=== PATIENT | female | born 1960 | race Caucasian/White ===

== ENCOUNTER 2016-12-29 17:35 | Emergency (ER) | payer SELFPAY ==
[~2016-12-29] VITALS: Ht 154.9 cm; Wt 83.4 kg
[2016-12-29 18:12] LABS: BLOOD UREA NITROGEN 22 mg/dL (7-18)
[2016-12-29] MEDS ORDERED: ACET325C PO (18:23)
[2016-12-29] MEDS ORDERED: ASPI1TAB2 PO (18:23)
[2016-12-29] MEDS ORDERED: ONDANSETRON 2MG/ML, 2ML IVPush ONE (18:30)
[2016-12-29] MEDS ORDERED: SODIUM CHLORIDE FLUSH 10ML SYR IVF ONE (18:30)
[2016-12-29] MEDS ORDERED: SODIUM CHLORIDE 0.9% 1,000ML IVBOLUS ONE (18:30)
[2016-12-29] MEDS ORDERED: MORPHINE SULFATE 4 MG/ML, 1ML IVPush PRN (18:30)
[2016-12-29] MEDS ORDERED: ONDANSETRON 2MG/ML, 2ML ONE (18:33)
[2016-12-29] MEDS ORDERED: MORPHINE SULFATE 4 MG/ML, 1ML ONE (18:33)
[2016-12-29 18:45] LABS: PATH.CAST-FLAG NOT PRESENT; SPERM-FLAG NOT PRESENT; SRC-FLAG NOT PRESENT; XTAL-FLAG NOT PRESENT; YLC-FLAG NOT PRESENT
[2016-12-29 21:04] VITALS: BP 171/72
== END 2016-12-29 22:34 | disposition home or self-care (01) ==
LOC: EDBD 17:35 → ED 20:45
DX: R10.31 Right lower quadrant pain (principal); R10.33 Periumbilical pain; R94.4 Abnormal results of kidney function studies
CPT/HCPCS: 36415; 74176; 76830; 80048; 80076; 81001; 82040; 83690; 85025; 96361; 96374; 96375; 99285; J2405; J7030

== ENCOUNTER → 2020-08-20 | Outpatient (CLI) | payer OTHER ==
[~2020-08-20] MED LIST: ACET325C3 PO; ASPI-691 PO
[2020-08-20 12:28] LABS: BASOPHILS % (AUTO) 1 % (0-1); EOSINOPHILS % (AUTO) 1 % (1-7); LYMPHOCYTES % (AUTO) 17 % (22-44); MEAN CORPUSCULAR HEMOGLOBIN 30.4 pg (27.0-34.8); MEAN CORPUSCULAR HGB CONC 33.9 g/dL (32.4-35.8); MEAN PLATELET VOLUME 7.3 fL (7.4-10.4); MONOCYTES % (AUTO) 6 % (2-9); NEUTROPHILS % (AUTO) 76 % (42-75); PLATELET COUNT 477 x10^3/uL (130-400); RED BLOOD COUNT 3.61 x10^6/uL (3.82-5.3); RED CELL DISTRIBUTION WIDTH 16.7 % (9.6-15.2)
[2020-08-20 12:40] LABS: ALBUMIN 2.6 g/dL (3.4-5.0)
[2020-08-20 12:41] LABS: ALANINE AMINOTRANSFERASE 20 U/L (12-78); CREATININE 1.61 mg/dL (0.55-1.02)
[2020-08-20 12:48] LABS: MD NO
[2020-08-20 13:40] LABS: HCT (SEDRATE) 32.3 % (34.6-47.8)
== END | disposition home or self-care (01) ==
LOC: LAB 12:04
PROVIDERS: ATTEND Internal Medicine
DX: M05.79 Rheumatoid arthritis with rheumatoid factor of multiple sites without organ or systems involvement (principal); M25.561 Pain in right knee; M25.562 Pain in left knee
CPT/HCPCS: 36415; 82040; 82565; 84450; 84460; 85025; 85651; 86200

== ENCOUNTER → 2020-09-14 | Outpatient (CLI) | payer OTHER | END | disposition home or self-care (01) | LOC: LAB 10:58 | PROVIDERS: ATTEND Internal Medicine | DX: M05.79 Rheumatoid arthritis with rheumatoid factor of multiple sites without organ or systems involvement (principal) | CPT/HCPCS: 36415; 86480 ==